=== PATIENT | female | born 2005 | race Caucasian/White ===

== ENCOUNTER 2024-01-19 19:10 | Emergency (ER) | payer OTHER, SELFPAY ==
[2024-01-19 19:17] VITALS: BP 138/79; PULSE 80; TEMP 36.7; O2SAT 99; BMI 15.7
--- NOTE | 2024-01-19 19:39 | ED.GENADUL1 ---
HPI HPI - General Adult General Chief complaint: Urogenital-Female Stated complaint: Flank Pain Time Seen by Provider: 01/19/24 19:16 Source: patient Mode of arrival: walk-in Limitations: no limitations History of Present Illness HPI narrative: Patient is a 19-year-old female who presents to the emergency department for the evaluation of urinary frequency, dysuria and pressure in the suprapubic abdomen associated with low back pain. She was seen at urgent care in [place] last week and diagnosed with a urinary tract infection. Her prescription reports show she was placed on Keflex for 7 days, she states she finished the last pill yesterday. She has had no fevers, vomiting. No flank pain. She states she went back to urgent care in [facility] and was instructed to come to the ER in case she has kidney stones. No medications taken prior to arrival. She is not concerned for . Related Data Previous Rx's ?Medication ?Instructions ?Recorded ketorolac 10 mg tablet 10 mg PO TID PRN pain #10 tabs 01/19/24 ondansetron 4 mg disintegrating 4 mg PO Q6H PRN nausea and 01/19/24 tablet vomiting #12 tabs phenazopyridine 200 mg tablet 200 mg PO Q8H 2 days #6 tabs 01/19/24 (Pyridium) sulfamethoxazole 800 1 tab PO BID 7 days #14 tabs 01/19/24 mg-trimethoprim 160 mg tablet (Bactrim DS) Allergies Allergy/AdvReac Type Severity Reaction Status Date / Time No Known Drug Allergies Allergy Verified 01/19/24 19:17 Opioid HPI Opioid Management Most Recent Opioid Data: No Data to Display Review of Systems ROS Constitutional Denies: fever or chills Ears, nose, mouth, and throat Denies: throat pain Respiratory Denies: shortness of breath Gastrointestinal Reports: abdominal pain; Denies: nausea, vomiting or diarrhea Genitourinary Reports: painful urination, urinary frequency and pelvic pain Musculoskeletal Reports: back pain Integumentary/Breast Denies: rash Hematologic/Lymphatic Denies: easy bruising or easy bleeding Exam Narrative Exam Narrative: Gen.: Awake, alert, in no distress Head: Normocephalic, atraumatic ENT: Moist mucous membranes Respiratory: No respiratory distress Gastrointestinal: Abdomen is soft, nondistended and nontender to palpation Back: No CVA tenderness Extremities: Moves extremities equally Psych: Normal mood and affect Neuro: No focal neuro deficit Skin: Warm, dry, intact Constitutional Vital Signs, click to edit/add: Last Vital Signs Temp 98.1 F 01/19/24 19:17 Pulse 80 01/19/24 19:17 Resp 18 01/19/24 19:17 BP 138/79 01/19/24 19:17 Pulse Ox 99 01/19/24 19:17 O2 Del Method Room Air 01/19/24 19:17 Course Vital Signs Vital signs: Vital Signs Temperature 98.1 F 01/19/24 19:17 Pulse Rate 80 01/19/24 19:17 Respiratory Rate 18 01/19/24 19:17 Blood Pressure 138/79 01/19/24 19:17 Pulse Oximetry 99 01/19/24 19:17 Oxygen Delivery Method Room Air 01/19/24 19:17 Temperature 98.1 F 01/19/24 19:17 Pulse Rate 80 01/19/24 19:17 Respiratory Rate 18 01/19/24 19:17 Blood Pressure 138/79 01/19/24 19:17 Pulse Oximetry 99 01/19/24 19:17 Oxygen Delivery Method Room Air 01/19/24 19:17 Medical Decision Making MDM Narrative Medical decision making narrative: Lab studies show no evidence of sepsis, vital signs are stable. Urine specimen shows urinary tract infection. Patient will be placed on Bactrim, first dose given in the ER. She was also given Pyridium and Toradol. CT with no evidence of kidney stone. Patient discharged home to continue antibiotics, follow-up with PCP and return to the emergency department if symptoms change or worsen SHARED APC VISIT, PHYSICIAN ATTESTATION: [id number] I performed a substantive part of the MDM during the patient?s E/M visit. I personally evaluated and examined the patient. I personally made or approved the documented management plan and acknowledge its risk of complications. Medical Records Medical records reviewed: Yes I reviewed the patient's medical records Lab Data Lab results reviewed: Yes I reviewed the patient's lab results Labs: Lab Results 01/19/24 01/19/24 Range/Units 19:20 19:45 WBC 8.3 (4.0-11.0) 10^3/uL RBC 4.36 (4.20-5.40) 10^6/uL Hgb 13.2 (12.0-16.0) g/dL Hct 38.7 (36.0-48.0) % MCV 88.8 (81.0-99.0) fL MCH 30.3 (26.7-34.0) pg MCHC 34.1 (29.9-35.2) g/dL RDW 11.9 (11.0-15.0) % Plt Count 307 (150-450) 10^3/uL MPV 10.7 (9.5-13.5) fL Neut % (Auto) 59.9 (43.0-75.0) % Lymph % (Auto) 32.1 (20.5-60.0) % [place] % (Auto) 6.3 (1.7-12.0) % Eos % (Auto) 1.2 (0.9-7.0) % Baso % (Auto) 0.4 (0.2-2.0) % Neut # (Auto) 5.0 (1.4-6.5) 10^3/uL Lymph # (Auto) 2.7 (1.2-3.8) 10^3/uL [place] # (Auto) 0.5 (0.3-0.8) 10^3/uL Eos # (Auto) 0.1 (0.0-0.7) 10^3/uL Baso # (Auto) 0.0 (0.0-0.1) 10^3/uL Abs Immat Gran (auto) 0.01 (0.00-0.03) 10^3/uL Imm/Tot Granulo (auto) 0.1 (0.0-0.5) % Sodium 136 (136-145) mmol/L Potassium 3.6 (3.5-5.1) mmol/L Chloride 103 (98-107) mmol/L Carbon Dioxide 26.1 (21.0-32.0) mmol/L Anion Gap 10.5 BUN 17.0 (7.0-18.0) mg/dL Creatinine 0.95 (0.55-1.02) mg/dL Est GFR ( Amer) >60 (>=60) Est GFR (Non-Af Amer) >60 (>=60) BUN/Creatinine Ratio 17.9 Glucose 91 (74-106) mg/dL Calcium 9.1 (8.5-10.1) mg/dL Serum HCG, Qual Negative (NEGATIVE) Urine Color Yellow (YELLOW) Urine Clarity Clear (CLEAR) Urine pH 6.0 (5.0-9.0) Ur Specific [place] >=1.030 A (1.005-1.025) Urine Protein 100 A (NEG/TRACE) mg/dL Urine Glucose (UA) Negative (NEGATIVE) mg/dL Urine Ketones Negative (NEGATIVE) mg/dL Urine Occult Blood Large A (NEGATIVE) Urine Nitrite Negative (NEGATIVE) Urine Bilirubin Small A (NEGATIVE) Urine Urobilinogen 1.0 (0.2-1.0) EU/dL Ur Leukocyte Esterase Trace A (NEGATIVE) Urine RBC >100 A (0-2) #/HPF Urine WBC 20-50 A (NONE SEEN) #/HPF Ur Squamous Epith Cells Moderate A (NONE/RARE) #/LPF Urine Crystals None seen (None Seen) #/HPF Urine Bacteria Small A (NONE SEEN) #/HPF Urine Casts None seen (NONE SEEN) #/LPF Urine Mucus Small A (NONE SEEN) Ur Culture Indicated? Yes Imaging Data CT scan - abdomen: Attestation: I have reviewed the pertinent imaging results. Radiologist's impression: ITS Impressions Abdomen/Pelvis CT 01/19/24 20:02 IMPRESSION: 1. No hydronephrosis. No hydroureter. No nephroureterolithiasis. No bladder stones. No focal bladder wall thickening. 2. No colonic dilation. No small bowel dilation. 3. Appendix is normal. 4. Uterus and ovaries are unremarkable by this limited noncontrast technique. Electronically authenticated by: TREVOR LAWSON Date: 01/19/2024 22:04 Discharge Plan Discharge Stand Alone Forms: Portal Instructions Chief Complaint: Urogenital-Female Clinical Impression: Urinary tract infection Patient Disposition: Home, Self-Care Time of Disposition Decision: 21:40 Condition: Good Prescriptions / Home Meds: New phenazopyridine [Pyridium] 200 mg tablet 200 mg PO Q8H 2 Days Qty: 6 0RF sulfamethoxazole-trimethoprim [Bactrim DS] 800-160 mg tablet 1 tab PO BID 7 Days Qty: 14 0RF ketorolac 10 mg tablet 10 mg PO TID PRN (Reason: pain) Qty: 10 0RF ondansetron 4 mg tablet,disintegrating 4 mg PO Q6H PRN (Reason: nausea and vomiting) Qty: 12 0RF Print Language: Cypriot Instructions: Urinary Tract Infection in Women (ED) Referrals: Physician,Non-Staff, MD [Primary Care Provider] - 1 week
[2024-01-19 19:45] LABS: Bilirubin Urine SMALL (NEGATIVE); Blood Urine LARGE (NEGATIVE); Clarity Urine CLEAR (CLEAR); Color Urine YELLOW (YELLOW); Glucose Urine UA NEGATIVE (NEGATIVE); Ketones Urine NEGATIVE (NEGATIVE); Leukocyte Esterase Urine TRACE (NEGATIVE); Nitrite Urine NEGATIVE (NEGATIVE); Protein Urine 100 mg/dL (NEG/TRACE); Specific Gravity Urine >=1.030 (1.005-1.025)
[2024-01-19 19:48] LABS: HCG Qualitative NEGATIVE (NEGATIVE); Internal Control Within Normal Limits; Urine Microscopic Indicated YES
[2024-01-19 19:52] LABS: Bacteria Urine SMALL #/HPF (NONE SEEN); Crystals Seen? None Seen #/HPF (None Seen); Mucus Urine SMALL (NONE SEEN); RBC Urine >100 #/HPF (0-2); Squamous Epithelial Cell Urine MODERATE #/LPF (NONE/RARE); WBC Urine 20-50 #/HPF (NONE SEEN)
[2024-01-19 19:53] LABS: Cast Seen? NONE SEEN #/LPF (NONE SEEN); Urine Culture Indicated YES
[2024-01-19] MEDS: KETOROLAC TROMETHAMINE 10 MG TABLET PO (20:02)
--- NOTE | 2024-01-19 20:02 | CT_ITS ---
[address] [address] Patient Name: AILYN CARTY MRN: [id number] date: 2005 Sex: F Assigned Patient Location: ER Current Patient Location: [facility] Accession/Order Number: [id number] Exam Date: 01/19/2024 20:08 Report Date: 01/19/2024 22:04 At the request of: PRAVIN OLIVEROS Procedure: CT abdomen pelvis wo con EXAM: CT abdomen pelvis wo con HISTORY: kidney stones COMPARISON: None. TECHNIQUE: Dose reduction techniques were achieved by using automated exposure control and/or adjustment of mA and/or kV according to patient size and/or use of iterative reconstruction technique. Noncontrast CT of the abdomen/pelvis. FINDINGS: Lung bases are clear. No focal liver abnormality. Spleen is normal. Adrenal glands are normal. Distal esophagus, stomach and duodenum are normal. Kidneys are normal. No nephroureterolithiasis. No bladder stones. No focal bladder wall thickening. Uterus and ovaries are unremarkable by this technique. No colonic dilation. No pericolonic fat stranding. Appendix is normal. No small bowel dilation. No adjacent mesenteric edema. No acute osseous abnormality. CT/CT abdomen pelvis wo con IMPRESSION: 1. No hydronephrosis. No hydroureter. No nephroureterolithiasis. No bladder stones. No focal bladder wall thickening. 2. No colonic dilation. No small bowel dilation. 3. Appendix is normal. 4. Uterus and ovaries are unremarkable by this limited noncontrast technique. Electronically authenticated by: TREVOR LAWSON Date: 01/19/2024 22:04
[2024-01-19 20:06] LABS: Basophils Percent Auto 0.4 % (0.2-2.0); Eosinophils Absolute Auto 0.1 10^3/uL (0.0-0.7); Eosinophils Percent Auto 1.2 % (0.9-7.0); Hematocrit 38.7 % (36.0-48.0); Hemoglobin 13.2 g/dL (12.0-16.0); Immature Granulocytes Abs Auto 0.01 10^3/uL (0.00-0.03); Immature Granulocytes Pct Auto 0.1 % (0.0-0.5); Lymphocytes Absolute Auto 2.7 10^3/uL (1.2-3.8); Lymphocytes Percent Auto 32.1 % (20.5-60.0); Mean Corpuscular HGB Conc 34.1 g/dL (29.9-35.2); Mean Corpuscular Hemoglobin 30.3 pg (26.7-34.0); Mean Corpuscular Volume 88.8 fL (81.0-99.0); Mean Platelet Volume 10.7 fL (9.5-13.5); Monocytes Absolute Auto 0.5 10^3/uL (0.3-0.8); Monocytes Percent Auto 6.3 % (1.7-12.0); Neutrophils Percent Auto 59.9 % (43.0-75.0); Platelet Count 307 10^3/uL (150-450); Red Blood Count 4.36 10^6/uL (4.20-5.40); Red Cell Distribution Width 11.9 % (11.0-15.0); White Blood Count 8.3 10^3/uL (4.0-11.0)
[2024-01-19 20:17] LABS: Anion Gap 10.5; BUN Creatinine Ratio 17.9; Calcium 9.1 mg/dL (8.5-10.1); Carbon Dioxide 26.1 mmol/L (21.0-32.0); Chloride 103 mmol/L (98-107); Estimated GFR (African America >60 (>=60); Estimated GFR (Non-African Ame >60 (>=60); Glucose 91 mg/dL (74-106); Potassium 3.6 mmol/L (3.5-5.1); Sodium 136 mmol/L (136-145)
[2024-01-19] MEDS: SULFAMETHOXAZOLE/TRIMETHOPRIM 800-160 MG TABLET 1 TAB PO (21:19)
[2024-01-21 21:08] LABS: Neisseria gonorrhoeae, NAA Negative (Negative)
== END 2024-01-19 22:23 | disposition home or self-care (01) ==
PROVIDERS: Physician Assistant; Emergency Provider Emergency Medicine
DX: N39.0 Urinary tract infection, site not specified (principal)
CPT/HCPCS: 36415; 74176; 80048; 81001; 84703; 85025; 87086; 87491; 87591; 99284

== ENCOUNTER 2024-12-06 14:09 | Outpatient (OUT) | payer OTHER, SELFPAY ==
--- OUTSIDE RECORDS SUMMARY | 2024-12-06 14:15 | XMS_ITS | Clinical Summary ---
Author Organization [facility] Address [address] [place] [id number] Care Team Providers Care Reverberatory Skimmer Name Role Phone Unavailable Primary Care Provider Unavailabl e Social History Tobacco Use Types Packs/Day Years Used Date Smoking Tobacco: Never Assessed Comments Unknown Sex and Gender Information Value Date Recorded Sex Assigned at Not on file Legal Sex Female 9:22 AM EST Gender Identity Not on file Sexual Orientation Not on file Plan of Treatment Not on file Insurance [employer]
--- OUTSIDE RECORDS SUMMARY | 2024-12-06 14:15 | XMS_ITS ---
Author Organization [facility] Address [address] [place] [id number] Care Team Providers Care Appliance Technician Name Role Phone Unavailable Primary Care Provider Unavailabl e Transplant Episode Kidney Potential Donor [facility] ([place], [place]) - [facility] Referred on 05/11/2024 Marked as Active on 05/13/2024 Reason: Pre Evaluation Screening Approved Kidney CoordinatorLauren Maldonado RN Fax: N/A Email: N/A Care Team Name Role Phone Fax Email Lauren Maldonado RN Kidney Coordinator [phone] N/A N/A Events Pre-Donation Referred: 05/11/2024
[2024-12-07 05:07] LABS: HIV Ab/p24 Ag Screen Non Reactive (Non Reactive)
[2024-12-07 06:07] LABS: HBsAg Screen Negative (Negative)
[2024-12-07 08:09] LABS: Rubella Antibodies, IgG 6.39 index (Immune >0.99)
[2024-12-07 12:09] LABS: Rapid Plasma Reagin, Quant Non Reactive titer (NonRea<1:1)
== END 2024-12-06 14:10 | disposition home or self-care (01) ==
LOC: LAB 14:13
PROVIDERS: Visit Provider Obstetrics & Gynecology
DX: Z34.81 Encounter for supervision of other normal pregnancy, first trimester (principal)
CPT/HCPCS: 36415; 86592; 86762; 86850; 87340; 87389